=== PATIENT | female | born 1985 | race Caucasian/White ===

== ENCOUNTER 2022-04-27 21:27 | Emergency (ER) | payer BC ==
[~2022-04-27] VITALS: Ht 165.1 cm; Wt 68.0 kg
[~2022-04-27 21:27] MED LIST: IROSPAN 24/6 T1 EACH PO; Verotin-Gr Cap1 EACH PO
== END 2022-04-27 23:30 | disposition home or self-care (01) ==
LOC: ER 21:27
DX: S91.111A Laceration without foreign body of right great toe without damage to nail, initial encounter (principal); W45.8XXA Other foreign body or object entering through skin, initial encounter; Y92.828 Other wilderness area as the place of occurrence of the external cause; Z79.899 Other long term (current) drug therapy
CPT/HCPCS: 12002; 99282-25